=== PATIENT | male | born 1975 ===

== ENCOUNTER 2025-08-30 06:22 | Day surgery (SDC) | payer OTHER, SELFPAY | END 2025-08-30 12:52 | disposition home or self-care (01) | LOC: GI 06:22 | PROVIDERS: ATTENDING PHYSICIAN Internal Medicine Gastroenterology | DX: R19.4 Change in bowel habit (principal); K64.8 Other hemorrhoids; K57.30 Diverticulosis of large intestine without perforation or abscess without bleeding; K63.89 Other specified diseases of intestine | CPT/HCPCS: 45380; 88305 ==